=== PATIENT | male | born 1980 | race Two or more races ===

== ENCOUNTER 2022-01-11 08:53 | Emergency (ER) | payer BC, OTHER ==
[~2022-01-11] VITALS: Ht 167.6 cm; Wt 164.0 kg
[2022-01-11 09:37] VITALS: BP 148/90
[2022-01-11] MEDS ORDERED: IBUPROFEN 400 MG TAB PO ONE (10:00)
[2022-01-11] MEDS ORDERED: IBUP600T28 PO (11:02)
== END 2022-01-11 11:04 | disposition home or self-care (01) ==
LOC: ER 08:53
DX: S83.91XA Sprain of unspecified site of right knee, initial encounter (principal); M19.90 Unspecified osteoarthritis, unspecified site; J45.909 Unspecified asthma, uncomplicated; X58.XXXA Exposure to other specified factors, initial encounter; Y93.67 Activity, basketball; Y92.89 Other specified places as the place of occurrence of the external cause; Y99.8 Other external cause status
CPT/HCPCS: 73562